=== PATIENT | male | born 2000 | race Caucasian/White ===

== ENCOUNTER 2023-04-05 11:47 | Emergency (ER) | payer BC ==
[~2023-04-05] VITALS: Ht 177.8 cm; Wt 113.4 kg
[2023-04-05 12:20] VITALS: BP 133/88; PULSE 79; RESP 16; TEMP 98.2; O2SAT 96
[2023-04-05] MEDS ORDERED: NAPR-1704 PO (14:06)
[2023-04-05] MEDS ORDERED: CAPS1ADH5 TP (14:06)
[2023-04-05] MEDS: KETOROLAC 30 MG/ML VIAL IM ONE (14:26)
== END 2023-04-05 14:45 | disposition home or self-care (01) ==
LOC: MED 11:47
DX: M54.50 Low back pain, unspecified (principal); Z79.899 Other long term (current) drug therapy
CPT/HCPCS: 72100; 96372; 99283; J1885

== ENCOUNTER 2023-09-22 10:30 | Emergency (ER) | payer BC ==
[~2023-09-22] VITALS: Ht 175.3 cm; Wt 142.9 kg
[~2023-09-22 10:30] MED LIST: CAPS1ADH5 TP; NAPR-1704 PO
[2023-09-22 10:41] VITALS: BP 144/86; PULSE 90; RESP 19; TEMP 96.8; O2SAT 98
== END 2023-09-22 12:00 | disposition home or self-care (01) ==
LOC: MED 10:30
DX: J06.9 Acute upper respiratory infection, unspecified (principal); B97.89 Other viral agents as the cause of diseases classified elsewhere; R03.0 Elevated blood-pressure reading, without diagnosis of hypertension; Z79.1 Long term (current) use of non-steroidal anti-inflammatories (NSAID); Z79.899 Other long term (current) drug therapy
CPT/HCPCS: 71046; 99283